=== PATIENT | female | born 1975 | race Two or more races ===

== ENCOUNTER → 2025-04-12 | Outpatient (CLI) | payer MEDICAID, SELFPAY ==
--- NOTE | 2025-04-12 10:30 | XR_ITS ---
Examination: Breast ultrasound complete, bilateral Date and time of exam: April 11, 1102 hours INDICATIONS: Bilateral breast pain episode one month ago lasting one week Technique: Real-time grayscale ultrasonographic imaging bilateral breasts, including all 4 quadrants as well as nipple retroareolar and axillary regions. Findings: Sonographic images right breast No cystic or solid mass Sonographic images left breast 3:00 cyst 5 x 5 mm IMPRESSION: BI-RADS Category 2: Benign findings
== END | disposition home or self-care (01) ==
PROVIDERS: PCP Physician Assistant; Referring Provider Physician Assistant; Visit Provider Physician Assistant
DX: N64.4 Mastodynia (principal)
CPT/HCPCS: 76641

== ENCOUNTER → 2025-04-13 | Outpatient (CLI) | payer MEDICAID, SELFPAY ==
--- NOTE | 2025-04-13 15:45 | XR_ITS ---
Examination: Diagnostic digital mammography, bilateral Computer aided detection 3-D breast Tomosynthesis, bilateral Date and time of exam: April 13, 2025 at 1525 hours Comparison October 05, 2021 INDICATIONS: Patient states bilateral breast pain 5 months Technique: Nonmagnified MLO, CC views of the breasts to been obtained, reconstructed from 3-D Tomosynthesis images. R2 computer aided detection program utilized for evaluation of suspicious masses and/or abnormal calcifications. 3-D Tomosynthesis images obtained. Findings: Scattered areas of fibroglandular density. Benign calcifications. No suspicious masses IMPRESSION: BI-RADS Category 2: Benign findings Recommend yearly follow-up mammography If bilateral breast pain persists, repeat the bilateral breast sonography in 6 months
== END | disposition home or self-care (01) ==
LOC: CDIM 15:13
PROVIDERS: Referring Provider Physician Assistant; Visit Provider Physician Assistant
DX: R92.323 Mammographic fibroglandular density, bilateral breasts (principal); R92.1 Mammographic calcification found on diagnostic imaging of breast
CPT/HCPCS: 77062; 77066; G0279